=== PATIENT | female | born 1965 ===

== ENCOUNTER 2018-04-10 09:13 | Emergency (ER) | payer OTHER ==
[2018-04-10 09:13] VITALS: BMI 29.2
[2018-04-10 09:25] VITALS: BP 148/83; PULSE 64; RESP 18; TEMP 99; O2SAT 98
[2018-04-10] MEDS ORDERED: Amoxicillin-Clav 875-125 mg Tab PO ONE (10:09)
[2018-04-10] MEDS ORDERED: Tdap Vaccine 0.5 ml Vial (10-64 yrs) IM ONE ×2 (10:11→10:16)
[2018-04-10] MEDS ORDERED: Amoxicillin-Clav 875-125 mg Tab PO STA (10:12)
--- NOTE | 2018-04-10 12:06 | C.PDOC ---
History Of Present Illness 53 y/o female presents to the ER complaining of pain to right distal 3rd finger. Patient states that she picked up some type of object at work 1 week ago and it pinched her. Contrary to triage, patient reports that she was not evaluated for the injury by her PMD. She notes that she was given abx by her pharmacist, she has been taking Bactrim BID for the past 1 week. Denies having drainage, fever, chills, and numbness of hand. Time Seen by Provider: 04/10/18 09:26 Chief Complaint (Nursing): Upper Extremity Problem/Injury History Per: Patient History/Exam Limitations: no limitations Onset/Duration Of Symptoms: Days Current Symptoms Are (Timing): Still Present Severity: Moderate Past Medical History Reviewed: Historical Data, Nursing Documentation, Vital Signs Vital Signs: Last Vital Signs Temp 99 F 04/10/18 09:24 Pulse 64 04/10/18 09:24 Resp 18 04/10/18 09:24 BP 148/83 04/10/18 09:24 Pulse Ox 98 04/10/18 09:24 - Medical History PMH: No Chronic Diseases Surgical History: No Surg Hx Family History: States: No Known Family Hx - Social History Hx Tobacco Use: No Hx Alcohol Use: No Hx Substance Use: No - Immunization History Hx Tetanus Toxoid Vaccination: No Hx Influenza Vaccination: No Hx Pneumococcal Vaccination: No Review Of Systems Except As Marked, All Systems Reviewed And Found Negative. Constitutional: Negative for: Fever, Chills Musculoskeletal: Positive for: Other (pain to right distal 3rd finger) Neurological: Negative for: Weakness, Numbness Physical Exam - Physical Exam Appears: Non-toxic, No Acute Distress Skin: Normal Color, Warm, Dry Head: Atraumatic, Normacephalic Eye(s): bilateral: Normal Inspection Nose: Normal Oral Mucosa: Moist Neck: Supple Chest: Symmetrical Extremity: Normal ROM, No Tenderness, Swelling (mild swelling to dorsal aspect of right distal 3rd finger, no puss, no drainage) Neurological/Psych: Oriented x3, Normal Speech ED Course And Treatment O2 Sat by Pulse Oximetry: 98 (RA) Pulse Ox Interpretation: Normal Medical Decision Making Medical Decision Making: Plan: --Augmentin PO Updates: Patient has been discharged and instructed to follow up with PMD in 3-4 days. Disposition - Disposition Referrals: Jian Feng, [Non-Staff] - Disposition: HOME/ ROUTINE Disposition Time: 10:00 Condition: GOOD Additional Instructions: MITCHELL HUTCHISON, thank you for letting us take care of you today. The emergency medical care you received today was directed at your acute symptoms. If you were prescribed any medication, please fill it and take as directed. It may take several days for your symptoms to resolve. Return to the Emergency Department if your symptoms worsen, do not improve, or if you have any other problems. Please contact your doctor or call one of the physicians/clinics you have been referred to that are listed on the Patient Visit Information form that is included in your discharge packet. Bring any paperwork you were given at discharge with you along with any medications you are taking to your follow up visit. Our treatment cannot replace ongoing medical care by a primary care provider outside of the emergency department. Thank you for allowing the [facility] team to be part of your care today. YOU SHOULD NOT USE PRESCRIPTION MEDICATION THAT IS NOT PRESCRIBED TO YOU. Follow up with your DOCTOR in 3-4 days for re-evaluation and further management. MITCHELL HUTCHISON, sanjay por dejarnos atenderlo rex. La atencin mdica de emergencia que recibi hoy estaba dirigida a tonie sntomas agudos. Si le prescribieron algn medicamento, llnelo y tome segn las indicaciones. Tonie sntomas pueden tardar varios fraire en resolverse. Regrese al Departamento de Emergencia si tonie sntomas empeoran, no mejoran o si tiene algn otro problema. Comunquese con ulrich mdico o llame a jessica de los mdicos / clnicas a los que tolbert sido referido que figura en el formulario de Informacin de visita del paciente que se incluye en ulrich paquete de urban. Traiga todos los documentos que recibi al momento del urban junto con los medicamentos que est tomando en ulrich visita de seguimiento. Nuestro tratamiento no puede reemplazar la atencin mdica en curso por un proveedor de atencin primaria fuera del departamento de emergencia. Sanjay por permitir que el equipo de [facility] sea parte de ulrich cuidado hoy. NO DEBE UTILIZAR MEDICAMENTOS RECETADOS QUE NO ESTN PRESCRITOS. Saran un seguimiento con ulrich DOCTOR en 3-4 fraire para fang reevaluacin y administracin adicional. Prescriptions: Amoxicillin/Clavulanate [Augmentin 875 MG-125 MG] 1 tab PO BID #14 tab Instructions: Cellulitis (Skin Infection), Adult (DC) Forms: Gen Discharge Inst Georgian, [employer] (Georgian) Print Language: GHANAIAN - Clinical Impression Clinical Impression: Cellulitis - Scribe Statement The provider has reviewed the documentation as recorded by the Scribe Azeb Alonso Provider Attestation: All medical record entries made by the Scribe were at my direction and personally dictated by me. I have reviewed the chart and agree that the record accurately reflects my personal performance of the history, physical exam, medical decision making, and the department course for this patient. I have also personally directed, reviewed, and agree with the discharge instructions and disposition.
== END 2018-04-10 10:25 | disposition home or self-care (01) ==
LOC: C.ER 09:13
DX: L03.011 Cellulitis of right finger (principal); Z23 Encounter for immunization

== ENCOUNTER 2018-07-08 17:04 | Observation (INO) | payer OTHER ==
[2018-07-08 17:04] VITALS: BMI 29.2
[2018-07-08 17:26] LABS: BASO % 0.6 % (0.0-2.0); EOS # 0.3 K/uL (0.0-0.7); EOS % 4.4 % (0.0-4.0); HEMOGLOBIN 12.4 g/dL (11.0-16.0); LYMPH # 2.4 K/uL (1.0-4.3); LYMPH % 35.5 % (20.0-40.0); MEAN CELL VOLUME 87.1 fL (81.0-99.0); MEAN CORPUSCULAR HEMOGLOBIN 28.7 pg (27.0-31.0); MEAN CORPUSCULAR HGB CONC 32.9 g/dL (33.0-37.0); MONO # 0.4 K/uL (0.0-0.8); MONO % 6.6 % (0.0-10.0); NEUT # 3.5 K/uL (1.8-7.0); NEUT % 52.9 % (50.0-75.0); RBC 4.34 Mil/uL (3.80-5.20); WHITE BLOOD COUNT 6.7 K/uL (4.8-10.8)
[2018-07-08 17:35] LABS: ALB/GLOB RATIO 1.5 (1.0-2.1); ALBUMIN 4.3 g/dL (3.5-5.0); ALT/SGPT 29 U/L (9-52); AST/SGOT 21 U/L (14-36); BLOOD UREA NITROGEN 16 mg/dL (7-17); CALCIUM 8.7 mg/dl (8.6-10.4); GFR NON-AFRICAN AMERICAN > 60; LIPASE 64 U/L (23-300)
[2018-07-08 17:55] LABS: SQUAMOUS EPITHIAL 3 /hpf (0-5); URINE BACTERIA RARE (<OCC); URINE BILIRUBIN NEGATIVE (NEGATIVE); URINE BLOOD 1+ (NEGATIVE); URINE CLARITY Clear (Clear); URINE COLOR Straw (YELLOW); URINE GLUCOSE (UA) NORMAL (Normal); URINE LEUKOCYTE ESTERASE TRACE Leu/uL (Negative); URINE PROTEIN NEGATIVE (NEGATIVE); URINE UROBILINOGEN NORMAL mg/dL (0.2-1.0)
[2018-07-08] MEDS ORDERED: Sodium Chloride 0.9% 1,000 ML IV ONE (18:12)
[2018-07-08] MEDS ORDERED: Morphine 4 MG/ML VIAL ONE (18:23)
[2018-07-08] MEDS ORDERED: Sodium Chloride 0.9% 1,000 ML ONE (18:23)
--- NOTE | 2018-07-08 18:31 | C.PDOC ---
History Of Present Illness 53 year old female presents to the ED complaining of right sided abdominal pain and headache for several days but worse today. Reports she has a history of gallbladder stones. Denies any vomiting, diarrhea, nausea, fever, chills, leydi rtness of breath, chest pain, dysuria, hematuria, or any other symptoms. Time Seen by Provider: 07/08/18 18:03 Chief Complaint (Nursing): Female Genitourinary History Per: Patient History/Exam Limitations: no limitations Onset/Duration Of Symptoms: Days, Worse Since (today) Current Symptoms Are (Timing): Still Present Location Of Pain/Discomfort: RUQ, RLQ Radiation Of Pain To:: None Associated Symptoms: denies: Fever, Chills, Nausea, Vomiting, Diarrhea, Back Pain, Chest Pain, Urinary Symptoms Past Medical History Reviewed: Historical Data, Nursing Documentation, Vital Signs Vital Signs: Last Vital Signs Temp 98.2 F 07/08/18 17:52 Pulse 74 07/08/18 17:52 Resp 20 07/08/18 17:52 BP 126/66 07/08/18 17:52 Pulse Ox 98 07/08/18 17:52 - Medical History PMH: Diabetes Surgical History: No Surg Hx Family History: States: No Known Family Hx - Social History Hx Tobacco Use: No Hx Alcohol Use: No Hx Substance Use: No - Immunization History Hx Tetanus Toxoid Vaccination: No Hx Influenza Vaccination: No Hx Pneumococcal Vaccination: No Review Of Systems Except As Marked, All Systems Reviewed And Found Negative. Constitutional: Negative for: Fever, Chills Eyes: Negative for: Vision Change Cardiovascular: Negative for: Chest Pain Respiratory: Negative for: Shortness of Breath Gastrointestinal: Positive for: Abdominal Pain. Negative for: Nausea, Vomiting, Diarrhea, Constipation Genitourinary: Negative for: Dysuria, Hematuria Neurological: Positive for: Headache Physical Exam - Physical Exam Additional Physical Exam Comments: General- Non-toxic, Moderate distress Head- Normocephalic, Atraumatic Eyes- PERRL, EOMI, (Conjunctiva clear) Mucosa- Moist Chest- Symmetrical Cardiovascular: Rhythm Regular, No murmur, Other (Normal S1, S2) Resp- no wheezing, rales, or rhonchi, Lungs CTA bilaterally Abd- Soft. RUQ and RLQ tenderness. No distension. No guarding, no rebound Ext: Bilateral (atraumatic, normal color and temperature, no cyanosis or edema) DP pulses 2+ Neuro- Oriented x3. Gait: steady ED Course And Treatment - Laboratory Results Result Diagrams: 07/08/18 17:20 07/08/18 17:20 O2 Sat by Pulse Oximetry: 98 (RA) Pulse Ox Interpretation: Normal - CT Scan/US CT abdomen Other Rad Studies (CT/US): Read By Radiologist, Radiology Report Reviewed CT/US Interpretation: IMPRESSION: Gallstones. Mildly distended fluid-filled loops of small bowel extending into the pelvis with the mild partial small bowel obstruction not excluded. Clinical correlation and follow-up study recommended. Medical Decision Making Medical Decision Making: Plan - CT abd/pel - Morphine 4mg IVP - Zofran 4mg IVP - IV fluids - Urine culture [address] Jackson. Accepts patient for observation for possible bladder obstruction and abdominal pain. Disposition - Disposition Forms: [facility] (Chilean) - Scribe Statement The provider has reviewed the documentation as recorded by the Scribsavi Taylor All medical record entries made by the Baoibsavi were at my direction and personally dictated by me. I have reviewed the chart and agree that the record a ccurately reflects my personal performance of the history, physical exam, medical decision making, and the department course for this patient. I have also personally directed, reviewed, and agree with the discharge instructions and disposition.
[2018-07-08] MEDS ORDERED: Iodixanol 320 MG/ML 100 ML BOTTLE IV ONE (18:35)
[2018-07-08] MEDS ORDERED: Sodium Chloride 0.9% 1,000 ML IV SCH (19:45)
--- NOTE | 2018-07-08 21:28 | CP.PCM.HP ---
<Reji Werner - Last Filed: 07/09/18 06:53> History of Present Illness - History of Present Illness History of Present Illness: CC "abdominal pain" HPI: Patient is a 53 year old female who presents with complaints of worsening right sided abdominal pain that became severe today at 4pm. She states she was at work today, bent over to lift a heavy bag of clothes, and felt severe pain in her right abdomen when she stood up. She states that her abdominal pain is worse when she bends over, moves and takes a deep breath and radiates to her right thigh. She denies any alleviating factors, however states that she feels better after she received pain medication in the ED. She did not take anything at home for her symptoms. She states she has had right sided abdominal pain for the past 4 months, initially intermittent, mild in nature, only lasting about 15 minutes but has since gradually worsened. She has seen her PMD for her abdominal pain and she had a recent abdominal ultrasound which revealed gallstones. Of note, she also states she has had thin stools about the size of a pencil every 2 to 3 days for the past 4 months. Her last bowel movement was today, pencil thin, brown, nonbloody nonblack stools. Admits to feeling slightly dizzy with the pain. She denies any nausea, vomiting. She denies fevers, chills, chest pain, shortness of breath, palpitations, urinary complaints including dysuria, urinary frequency. Admits to slight sour taste in her mouth. PMD: clinic PMH: GERD PSH: none Family hx: Sister of unspecified cancer at age 48 Social hx: denies history of tobacco, alcohol or drug use. Currently works in a [employer]. Home meds: omega 3, Pepcid Allergies: NKDA HCP: Bryson No advance directive in place Present on Admission - Present on Admission Any Indicators Present on Admission: No Review of Systems - Constitutional Constitutional: absent: Chills, Fever, Weight Gain, Weight Loss - EENT Eyes: absent: Change in Vision Ears: absent: Ear Pain Nose/Mouth/Throat: absent: Nasal Congestion, Sore Throat - Cardiovascular Cardiovascular: absent: Chest Pain, Dyspnea, Palpitations, Syncope - Respiratory Respiratory: absent: Cough, Dyspnea - Gastrointestinal Gastrointestinal: Abdominal Pain. absent: Diarrhea, Nausea, Vomiting - Genitourinary Genitourinary: absent: Difficulty Urinating, Dysuria - Musculoskeletal Musculoskeletal: absent: Neck Pain, Stiffness, Tingling - Neurological Neurological: absent: Abnormal Gait, Abnormal Hearing, Abnormal Movements, Confusion, Dizziness, Syncope - Psychiatric Psychiatric: absent: Anxiety, Depression Past Patient History - Past Social History Smoking Status: Never Smoked - ENDOCRINE/METABOLIC Hx Diabetes Mellitus Type 2: Yes - PSYCHIATRIC Hx Substance Use: No - SURGICAL HISTORY Hx Surgeries: No - ANESTHESIA Hx Anesthesia: No Hx Anesthesia Reactions: No Hx Malignant Hyperthermia: No Meds Allergies/Adverse Reactions: Allergies Allergy/AdvReac Type Severity Reaction Status Date / Time No Known Allergies Allergy Verified 04/10/18 09:18 Physical Exam - Constitutional Appears: Well, No Acute Distress - Head Exam Head Exam: ATRAUMATIC, NORMOCEPHALIC - Eye Exam Eye Exam: EOMI, PERRL. absent: Conjunctival injection, Periorbital swelling - ENT Exam ENT Exam: Mucous Membranes Moist, Normal Oropharynx - Neck Exam Neck exam: Positive for: Full Rom. Negative for: Lymphadenopathy, Tenderness, Thyromegaly - Respiratory Exam Respiratory Exam: Clear to Auscultation Bilateral, NORMAL BREATHING PATTERN. absent: Rales, Rhonchi, Wheezes, Respiratory Distress, Stridor - Cardiovascular Exam Cardiovascular Exam: REGULAR RHYTHM, +S1, +S2. absent: Gallop, Rubs, Systolic Murmur - GI/Abdominal Exam GI & Abdominal Exam: Normal Bowel Sounds, Soft, Tenderness (Mild right mid abdominal, reproducible with pressure to right thoracic at level T10 ). absent: Distended, Firm, Guarding, Rebound, Rigid - Rectal Exam Rectal Exam: NORMAL INSPECTION. absent: Black Stool, Bloody Stool, Hemorrhoids - Extremities Exam Extremities exam: Positive for: normal capillary refill, pedal pulses present. Negative for: calf tenderness - Back Exam Back exam: absent: CVA tenderness (L), CVA tenderness (R) - Neurological Exam Neurological exam: Alert, CN II-XII Intact, Oriented x3 - Psychiatric Exam Psychiatric exam: Normal Affect, Normal Mood - Skin Skin Exam: Dry, Intact, Warm Results - Vital Signs Recent Vital Signs: Last Vital Signs Temp 98.7 F 07/08/18 20:15 Pulse 59 L 07/08/18 20:15 Resp 18 07/08/18 20:15 BP 138/59 L 07/08/18 20:15 Pulse Ox 97 07/08/18 20:15 - Labs Result Diagrams: 07/08/18 17:20 07/08/18 17:20 Labs: Laboratory Results - last 24 hr 07/08/18 07/08/18 07/08/18 17:20 17:20 17:46 WBC 6.7 RBC 4.34 Hgb 12.4 Hct 37.8 MCV 87.1 MCH 28.7 MCHC 32.9 L RDW 14.0 Plt Count 250 MPV 8.0 Neut % (Auto) 52.9 Lymph % (Auto) 35.5 [place] % (Auto) 6.6 Eos % (Auto) 4.4 H Baso % (Auto) 0.6 Neut # (Auto) 3.5 Lymph # (Auto) 2.4 [place] # (Auto) 0.4 Eos # (Auto) 0.3 Baso # (Auto) 0.0 Sodium 141 Potassium 4.3 Chloride 103 Carbon Dioxide 30 Anion Gap 12 BUN 16 Creatinine 0.7 Est GFR ( Amer) > 60 Est GFR (Non-Af Amer) > 60 Random Glucose 96 Calcium 8.7 Total Bilirubin 0.4 AST 21 ALT 29 Alkaline Phosphatase 127 H Total Protein 7.1 Albumin 4.3 Globulin 2.8 Albumin/Globulin Ratio 1.5 Lipase 64 Urine Color Straw Urine Clarity Clear Urine pH 6.0 Ur Specific [place] 1.010 Urine Protein Negative Urine Glucose (UA) Normal Urine Ketones Negative Urine Blood 1+ H Urine Nitrate Negative Urine Bilirubin Negative Urine Urobilinogen Normal Ur Leukocyte Esterase Trace Urine WBC (Auto) 2 Urine RBC (Auto) 1 Ur Squamous Epith Cells 3 Urine Bacteria Rare Urine HCG, Qual 07/08/18 18:08 WBC RBC Hgb Hct MCV MCH MCHC RDW Plt Count MPV Neut % (Auto) Lymph % (Auto) [place] % (Auto) Eos % (Auto) Baso % (Auto) Neut # (Auto) Lymph # (Auto) [place] # (Auto) Eos # (Auto) Baso # (Auto) Sodium Potassium Chloride Carbon Dioxide Anion Gap BUN Creatinine Est GFR ( Amer) Est GFR (Non-Af Amer) Random Glucose Calcium Total Bilirubin AST ALT Alkaline Phosphatase Total Protein Albumin Globulin Albumin/Globulin Ratio Lipase Urine Color Urine Clarity Urine pH Ur Specific [place] Urine Protein Urine Glucose (UA) Urine Ketones Urine Blood Urine Nitrate Urine Bilirubin Urine Urobilinogen Ur Leukocyte Esterase Urine WBC (Auto) Urine RBC (Auto) Ur Squamous Epith Cells Urine Bacteria Urine HCG, Qual Negative Assessment & Plan - Assessment and Plan (Free Text) Assessment: 53 year old female who presents for sudden onset of right abdominal pain 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 Plan: Abdominal pain, likely secondary to radiculopathy of thoracic spine CT Abdomen/pelvis: Gallstone, Mildly distended fluid filled loops of small bowel extending into the pelvis with mild partial SBO not excluded. In ED, patient received NS IV fluids, Morphine and Zofran with improvement of symptoms Afebrile white count 6.7 Able to tolerate PO Passing gas and stool, last stool in afternoon. May give Ibuprofen 600mg for pain. May resume diet, monitor if patient experience nausea/vomiting/no passing gas/stools Thin stools Will require outpatient colonoscopy f/u stool occult PPX: Heparin Pepcid Heart healthy diet Case discussed with Dr. Manuel Werner, PGY1 <Florentino Jackson P - Last Filed: 07/09/18 07:35> Results - Vital Signs Recent Vital Signs: Last Vital Signs Temp 98.4 F 07/09/18 00:18 Pulse 59 L 07/09/18 00:18 Resp 20 07/09/18 00:18 BP 131/78 07/09/18 00:18 Pulse Ox 97 07/09/18 00:18 - Labs Result Diagrams: 07/09/18 06:41 07/08/18 17:20 Labs: Laboratory Results - last 24 hr 07/08/18 07/08/18 07/08/18 17:20 17:20 17:46 WBC 6.7 RBC 4.34 Hgb 12.4 Hct 37.8 MCV 87.1 MCH 28.7 MCHC 32.9 L RDW 14.0 Plt Count 250 MPV 8.0 Neut % (Auto) 52.9 Lymph % (Auto) 35.5 [place] % (Auto) 6.6 Eos % (Auto) 4.4 H Baso % (Auto) 0.6 Neut # (Auto) 3.5 Lymph # (Auto) 2.4 [place] # (Auto) 0.4 Eos # (Auto) 0.3 Baso # (Auto) 0.0 Sodium 141 Potassium 4.3 Chloride 103 Carbon Dioxide 30 Anion Gap 12 BUN 16 Creatinine 0.7 Est GFR ( Amer) > 60 Est GFR (Non-Af Amer) > 60 Random Glucose 96 Calcium 8.7 Total Bilirubin 0.4 AST 21 ALT 29 Alkaline Phosphatase 127 H Total Protein 7.1 Albumin 4.3 Globulin 2.8 Albumin/Globulin Ratio 1.5 Lipase 64 Urine Color Straw Urine Clarity Clear Urine pH 6.0 Ur Specific [place] 1.010 Urine Protein Negative Urine Glucose (UA) Normal Urine Ketones Negative Urine Blood 1+ H Urine Nitrate Negative Urine Bilirubin Negative Urine Urobilinogen Normal Ur Leukocyte Esterase Trace Urine WBC (Auto) 2 Urine RBC (Auto) 1 Ur Squamous Epith Cells 3 Urine Bacteria Rare Urine HCG, Qual 07/08/18 07/09/18 18:08 06:41 WBC 5.8 RBC 4.26 Hgb 12.3 Hct 37.1 MCV 87.0 MCH 28.9 MCHC 33.2 RDW 13.8 Plt Count 273 MPV 8.6 Neut % (Auto) 52.4 Lymph % (Auto) 35.5 [place] % (Auto) 6.8 Eos % (Auto) 4.8 H Baso % (Auto) 0.5 Neut # (Auto) 3.0 Lymph # (Auto) 2.1 [place] # (Auto) 0.4 Eos # (Auto) 0.3 Baso # (Auto) 0.0 Sodium Potassium Chloride Carbon Dioxide Anion Gap BUN Creatinine Est GFR ( Amer) Est GFR (Non-Af Amer) Random Glucose Calcium Total Bilirubin AST ALT Alkaline Phosphatase Total Protein Albumin Globulin Albumin/Globulin Ratio Lipase Urine Color Urine Clarity Urine pH Ur Specific [place] Urine Protein Urine Glucose (UA) Urine Ketones Urine Blood Urine Nitrate Urine Bilirubin Urine Urobilinogen Ur Leukocyte Esterase Urine WBC (Auto) Urine RBC (Auto) Ur Squamous Epith Cells Urine Bacteria Urine HCG, Qual Negative Attending/Attestation - Attestation I have personally seen and examined this patient.: Yes I have fully participated in the care of the patient.: Yes I have reviewed all pertinent clinical information: Yes Notes (Text): 07/09/18 07:29 Assessment Clinically right lower thraco-lumbar radiculopathy, with h/o of lifting heavy box and start of symptoms, pain in relation to movement of spine, cough, and slr + on right side [address] finding of fluid filled small bowel is likely incidental, with patient c/o intermittent abd pain, related to this rather gall stones, change in caliber of the stool may also benefit with out patient colonoscopy. Plan Symptom control counselled about spine radiculopathy DC home this morning Out patient gi evaluation. See orders for detail.
[2018-07-09 00:21] VITALS: RESP 20
[2018-07-09 07:19] LABS: BASO % 0.5 % (0.0-2.0); EOS # 0.3 K/uL (0.0-0.7); EOS % 4.8 % (0.0-4.0); HEMOGLOBIN 12.3 g/dL (11.0-16.0); LYMPH # 2.1 K/uL (1.0-4.3); LYMPH % 35.5 % (20.0-40.0); MEAN CORPUSCULAR HEMOGLOBIN 28.9 pg (27.0-31.0); MEAN CORPUSCULAR HGB CONC 33.2 g/dL (33.0-37.0); MEAN PLATELET VOLUME 8.6 fL (7.2-11.7); MONO # 0.4 K/uL (0.0-0.8); MONO % 6.8 % (0.0-10.0); NEUT % 52.4 % (50.0-75.0); NRBC % 0.2 % (0.0-2.0); RBC 4.26 Mil/uL (3.80-5.20); RED CELL DISTRIBUTION WIDTH 13.8 % (11.5-14.5); WHITE BLOOD COUNT 5.8 K/uL (4.8-10.8)
[2018-07-09 08:02] VITALS: BP 149/81; PULSE 60; TEMP 97.9; O2SAT 96
[2018-07-09 08:09] LABS: ALB/GLOB RATIO 1.4 (1.0-2.1); ALBUMIN 3.9 g/dL (3.5-5.0); ALT/SGPT 28 U/L (9-52); AST/SGOT 20 U/L (14-36); BLOOD UREA NITROGEN 14 mg/dL (7-17); CALCIUM 8.5 mg/dl (8.6-10.4); GFR NON-AFRICAN AMERICAN > 60
--- NOTE | 2018-07-09 10:14 | CT ---
Date of service: 07/08/2018 PROCEDURE: CT Abdomen and Pelvis with and without intravenous contrast HISTORY: ABD PAIN COMPARISON: None. TECHNIQUE: Axial images of the abdomen were obtained in the pre contrast, portal venous and delayed phases of enhancement. Coronal and sagittal reformats were generated. Contrast dose: Radiation dose: Total exam DLP = 964.09 mGy-cm. This CT exam was performed using one or more of the following dose reduction techniques: Automated exposure control, adjustment of the mA and/or kV according to patient size, and/or use of iterative reconstruction technique. FINDINGS: LOWER THORAX: Unremarkable. LIVER: Unremarkable. No gross lesion or ductal dilatation. GALLBLADDER AND BILE DUCTS: Cholelithiasis. PANCREAS: Unremarkable. No gross lesion or ductal dilatation. SPLEEN: Unremarkable. ADRENALS: Unremarkable. No mass. KIDNEYS AND URETERS: Unremarkable. No hydronephrosis. No solid mass. VASCULATURE: Unremarkable. No aortic aneurysm. No aortic atherosclerotic calcification or mural plaque present. BOWEL: Scattered distended loops of small bowel possibly representing ileus/partial small bowel obstruction. APPENDIX: Normal appendix. PERITONEUM: Unremarkable. No free fluid. No free air. LYMPH NODES: Unremarkable. No enlarged lymph nodes. BLADDER: Unremarkable. REPRODUCTIVE: Unremarkable. BONES: No acute fracture. OTHER FINDINGS: None. IMPRESSION: Cholelithiasis. Scattered distended loops of small bowel possibly representing ileus/partial small bowel obstruction.
[2018-07-09] MEDS ORDERED: Pneumococcal 23-Valent Vaccine IM ONE (11:45)
[2018-07-09] MEDS ORDERED: Influenza Vaccine 60 MCG/0.5 ML SYR (3 yr & up) IM ONE (11:45)
--- NOTE | 2018-07-09 14:26 | CP.PCM.DIS ---
<ChagoCorinnadasiasavi - Last Filed: 07/09/18 14:21> Provider - Provider Date of Admission: 07/08/18 19:42 Attending physician: Florentino Jackson MD Time Spent in preparation of Discharge (in minutes): 70 Hospital Course - Lab Results Lab Results: Most Recent Lab Values WBC 5.8 K/uL (4.8-10.8) 07/09/18 06:41 RBC 4.26 Mil/uL (3.80-5.20) 07/09/18 06:41 Hgb 12.3 g/dL (11.0-16.0) 07/09/18 06:41 Hct 37.1 % (34.0-47.0) 07/09/18 06:41 MCV 87.0 fL (81.0-99.0) 07/09/18 06:41 MCH 28.9 pg (27.0-31.0) 07/09/18 06:41 MCHC 33.2 g/dL (33.0-37.0) 07/09/18 06:41 RDW 13.8 % (11.5-14.5) 07/09/18 06:41 Plt Count 273 K/uL (130-400) 07/09/18 06:41 MPV 8.6 fL (7.2-11.7) 07/09/18 06:41 Neut % (Auto) 52.4 % (50.0-75.0) 07/09/18 06:41 Lymph % (Auto) 35.5 % (20.0-40.0) 07/09/18 06:41 [place] % (Auto) 6.8 % (0.0-10.0) 07/09/18 06:41 Eos % (Auto) 4.8 % (0.0-4.0) H 07/09/18 06:41 Baso % (Auto) 0.5 % (0.0-2.0) 07/09/18 06:41 Neut # (Auto) 3.0 K/uL (1.8-7.0) 07/09/18 06:41 Lymph # (Auto) 2.1 K/uL (1.0-4.3) 07/09/18 06:41 [place] # (Auto) 0.4 K/uL (0.0-0.8) 07/09/18 06:41 Eos # (Auto) 0.3 K/uL (0.0-0.7) 07/09/18 06:41 Baso # (Auto) 0.0 K/uL (0.0-0.2) 07/09/18 06:41 Sodium 139 mmol/L (132-148) 07/09/18 06:41 Potassium 3.7 mmol/L (3.6-5.2) 07/09/18 06:41 Chloride 103 mmol/L (98-107) 07/09/18 06:41 Carbon Dioxide 28 mmol/L (22-30) 07/09/18 06:41 Anion Gap 12 (10-20) 07/09/18 06:41 BUN 14 mg/dL (7-17) 07/09/18 06:41 Creatinine 0.6 mg/dL (0.7-1.2) L 12 06:41 Est GFR ( Amer) > 60 07/09/18 06:41 Est GFR (Non-Af Amer) > 60 07/09/18 06:41 POC Glucose (mg/dL) 99 mg/dL (65-110) 07/08/18 21:19 Random Glucose 103 mg/dL (65-105) 07/09/18 06:41 Calcium 8.5 mg/dl (8.6-10.4) L 07/09/18 06:41 Phosphorus 4.9 mg/dL (2.5-4.5) H 07/09/18 06:41 Magnesium 2.1 mg/dL (1.6-2.3) 07/09/18 06:41 Total Bilirubin 0.7 mg/dL (0.2-1.3) 07/09/18 06:41 AST 20 U/L (14-36) 07/09/18 06:41 ALT 28 U/L (9-52) 07/09/18 06:41 Alkaline Phosphatase 95 U/L (38-126) 07/09/18 06:41 Total Protein 6.6 g/dL (6.3-8.3) 07/09/18 06:41 Albumin 3.9 g/dL (3.5-5.0) 07/09/18 06:41 Globulin 2.7 gm/dL (2.2-3.9) 07/09/18 06:41 Albumin/Globulin Ratio 1.4 (1.0-2.1) 07/09/18 06:41 Lipase 64 U/L (23-300) 07/08/18 17:20 Urine Color Straw (YELLOW) 07/08/18 17:46 Urine Clarity Clear (Clear) 07/08/18 17:46 Urine pH 6.0 (5.0-8.0) 07/08/18 17:46 Ur Specific [place] 1.010 (1.003-1.030) 07/08/18 17:46 Urine Protein Negative mg/dL (NEGATIVE) 07/08/18 17:46 Urine Glucose (UA) Normal mg/dL (Normal) 07/08/18 17:46 Urine Ketones Negative mg/dL (NEGATIVE) 07/08/18 17:46 Urine Blood 1+ (NEGATIVE) H 07/08/18 17:46 Urine Nitrate Negative (NEGATIVE) 07/08/18 17:46 Urine Bilirubin Negative (NEGATIVE) 07/08/18 17:46 Urine Urobilinogen Normal mg/dL (0.2-1.0) 07/08/18 17:46 Ur Leukocyte Esterase Trace [place]/uL (Negative) 07/08/18 17:46 Urine WBC (Auto) 2 /hpf (0-5) 07/08/18 17:46 Urine RBC (Auto) 1 /hpf (0-3) 07/08/18 17:46 Ur Squamous Epith Cells 3 /hpf (0-5) 07/08/18 17:46 Urine Bacteria Rare (<OCC) 07/08/18 17:46 Urine HCG, Qual Negative (NEGATIVE) 07/08/18 18:08 Stool Occult Blood Negative (NEGATIVE) 07/08/18 21:01 - Hospital Course Hospital Course: Upon Admission Patient is a 53 year old female who presents with complaints of worsening right sided abdominal pain that became severe today at 4pm. She states she was at work today, bent over to lift a heavy bag of clothes, and felt severe pain in her right abdomen when she stood up. She states that her abdominal pain is worse when she bends over, moves and takes a deep breath and radiates to her right thigh. She denies any alleviating factors, however states that she feels better after she received pain medication in the ED. She did not take anything at home for her symptoms. She states she has had right sided abdominal pain for the past 4 months, initially intermittent, mild in nature, only lasting about 15 minutes but has since gradually worsened. She has seen her PMD for her abdominal pain and she had a recent abdominal ultrasound which revealed gallstones. Of note, she also states she has had thin stools about the size of a pencil every 2 to 3 days for the past 4 months. Her last bowel movement was today, pencil thin, brown, nonbloody nonblack stools. Admits to feeling slightly dizzy with the pain. She denies any nausea, vomiting. She denies fevers, chills, chest pain, shortness of breath, palpitations, urinary complaints including dysuria, urinary frequency. Admits to slight sour taste in her mouth. CT abdomen/pelvis showed gallstones and mildly distended fluid-filled loops of small bowel Pt was admitted for abdominal pain. Hospital Course Pt was given zofran for nausea, protonix for abdominal colic, and morphine for abdominal pain. The following morning, pt was able to tolerate diet. She reported resolution of her abdominal pain. Pt was deemed stable for discharge to home. Upon Discharge Pt was deemed stable for discharge. She was educated on lifting objects properly, and the nature of her gallstones. She was instructed to follow up at the health clinic and to see a specialist for her gallstones, for which she said she already had an appointment. Pt was discharged with naproxen for muscle strain. Pt understood instructions and agreed. Discharge Exam - Head Exam Head Exam: ATRAUMATIC, NORMOCEPHALIC - Eye Exam Eye Exam: EOMI, Normal appearance, PERRL - ENT Exam ENT Exam: Mucous Membranes Moist - Respiratory Exam Respiratory Exam: Clear to PA & Lateral, NORMAL BREATHING PATTERN, UNREMARKABLE. absent: Rales, Rhonchi, Wheezes - Cardiovascular Exam Cardiovascular Exam: REGULAR RHYTHM, +S1, +S2. absent: Gallop, Rubs, Systolic Murmur - GI/Abdominal Exam GI & Abdominal Exam: Normal Bowel Sounds, Soft. absent: Distended, Firm, Tenderness - Extremities Exam Extremities exam: normal inspection - Neurological Exam Neurological exam: Alert, Oriented x3 - Psychiatric Exam Psychiatric exam: Normal Affect, Normal Mood - Skin Skin Exam: Normal Color Discharge Plan - Discharge Medications Prescriptions: RX: Naproxen 500 mg PO Q12H PRN #30 tab PRN Reason: Pain, Moderate (4-7) - Follow Up Plan Condition: GOOD Disposition: HOME/ ROUTINE Instructions: Small Bowel Obstruction (DC), Naproxen Additional Instructions: Please follow up with your primary care doctor at the [facility] within 1 week. Please take the naproxen if you have pain, 1 tablet every 12 hours. Please take with food. Return to the ED if symptoms return. Take care and be well. Por favor princess un seguimiento con ulrich mdico de atencin primaria en la [facility] [place] [facility] [place] dentro de 1 semana. [place] el naproxeno si tiene dolor, 1 tableta cada 12 horas. Por favor tome con la comida. Regrese a la ED si los sntomas regresan. Cudate y sintete kerry. Referrals: Mandy Neely MD [Staff Provider] - <Wilmer Car - Last Filed: 07/09/18 15:12> Provider - Provider Date of Admission: 07/08/18 19:42 Attending physician: Florentino Jackson MD Hospital Course - Lab Results Lab Results: Most Recent Lab Values WBC 5.8 K/uL (4.8-10.8) 07/09/18 06:41 RBC 4.26 Mil/uL (3.80-5.20) 07/09/18 06:41 Hgb 12.3 g/dL (11.0-16.0) 07/09/18 06:41 Hct 37.1 % (34.0-47.0) 07/09/18 06:41 MCV 87.0 fL (81.0-99.0) 07/09/18 06:41 MCH 28.9 pg (27.0-31.0) 07/09/18 06:41 MCHC 33.2 g/dL (33.0-37.0) 07/09/18 06:41 RDW 13.8 % (11.5-14.5) 07/09/18 06:41 Plt Count 273 K/uL (130-400) 07/09/18 06:41 MPV 8.6 fL (7.2-11.7) 07/09/18 06:41 Neut % (Auto) 52.4 % (50.0-75.0) 07/09/18 06:41 Lymph % (Auto) 35.5 % (20.0-40.0) 07/09/18 06:41 [place] % (Auto) 6.8 % (0.0-10.0) 07/09/18 06:41 Eos % (Auto) 4.8 % (0.0-4.0) H 07/09/18 06:41 Baso % (Auto) 0.5 % (0.0-2.0) 07/09/18 06:41 Neut # (Auto) 3.0 K/uL (1.8-7.0) 07/09/18 06:41 Lymph # (Auto) 2.1 K/uL (1.0-4.3) 07/09/18 06:41 [place] # (Auto) 0.4 K/uL (0.0-0.8) 07/09/18 06:41 Eos # (Auto) 0.3 K/uL (0.0-0.7) 07/09/18 06:41 Baso # (Auto) 0.0 K/uL (0.0-0.2) 07/09/18 06:41 Sodium 139 mmol/L (132-148) 07/09/18 06:41 Potassium 3.7 mmol/L (3.6-5.2) 07/09/18 06:41 Chloride 103 mmol/L (98-107) 07/09/18 06:41 Carbon Dioxide 28 mmol/L (22-30) 07/09/18 06:41 Anion Gap 12 (10-20) 07/09/18 06:41 BUN 14 mg/dL (7-17) 07/09/18 06:41 Creatinine 0.6 mg/dL (0.7-1.2) L 07/09/18 06:41 Est GFR ( Amer) > 60 07/09/18 06:41 Est GFR (Non-Af Amer) > 60 07/09/18 06:41 POC Glucose (mg/dL) 99 mg/dL (65-110) 07/08/18 21:19 Random Glucose 103 mg/dL (65-105) 07/09/18 06:41 Calcium 8.5 mg/dl (8.6-10.4) L 12/26/18 06:41 Phosphorus 4.9 mg/dL (2.5-4.5) H 07/09/18 06:41 Magnesium 2.1 mg/dL (1.6-2.3) 07/09/18 06:41 Total Bilirubin 0.7 mg/dL (0.2-1.3) 07/09/18 06:41 AST 20 U/L (14-36) 07/09/18 06:41 ALT 28 U/L (9-52) 07/09/18 06:41 Alkaline Phosphatase 95 U/L (38-126) 07/09/18 06:41 Total Protein 6.6 g/dL (6.3-8.3) 07/09/18 06:41 Albumin 3.9 g/dL (3.5-5.0) 07/09/18 06:41 Globulin 2.7 gm/dL (2.2-3.9) 07/09/18 06:41 Albumin/Globulin Ratio 1.4 (1.0-2.1) 07/09/18 06:41 Lipase 64 U/L (23-300) 07/08/18 17:20 Urine Color Straw (YELLOW) 07/08/18 17:46 Urine Clarity Clear (Clear) 07/08/18 17:46 Urine pH 6.0 (5.0-8.0) 07/08/18 17:46 Ur Specific [place] 1.010 (1.003-1.030) 07/08/18 17:46 Urine Protein Negative mg/dL (NEGATIVE) 07/08/18 17:46 Urine Glucose (UA) Normal mg/dL (Normal) 07/08/18 17:46 Urine Ketones Negative mg/dL (NEGATIVE) 07/08/18 17:46 Urine Blood 1+ (NEGATIVE) H 07/08/18 17:46 Urine Nitrate Negative (NEGATIVE) 07/08/18 17:46 Urine Bilirubin Negative (NEGATIVE) 07/08/18 17:46 Urine Urobilinogen Normal mg/dL (0.2-1.0) 07/08/18 17:46 Ur Leukocyte Esterase Trace [place]/uL (Negative) 07/08/18 17:46 Urine WBC (Auto) 2 /hpf (0-5) 07/08/18 17:46 Urine RBC (Auto) 1 /hpf (0-3) 07/08/18 17:46 Ur Squamous Epith Cells 3 /hpf (0-5) 07/08/18 17:46 Urine Bacteria Rare (<OCC) 07/08/18 17:46 Urine HCG, Qual Negative (NEGATIVE) 07/08/18 18:08 Stool Occult Blood Negative (NEGATIVE) 07/08/18 21:01 Attending/Attestation - Attestation I have personally seen and examined this patient.: Yes I have fully participated in the care of the patient.: Yes I have reviewed all pertinent clinical information, including history, physical exam and plan: Yes Notes (Text): 07/09/18 15:12 Medical attending: Patient was seen and examined by me, agrees the above note by the medical service technician. There was a CAT scan of the abdomen and pelvis done reporting a there was a gallstones however, the patient's AST, ALT, T bili and lipase levels were normal. Per review of the patient's history and physical, the patient was lifting very heavy objects and after that noticed that she was having a lot of abdominal pain. Today we saw her she was walking on her own, she was able to tolerate diet, she looked very well and stated that she felt much better. It's very likely that when she was musculoskeletal strain due to the heavy lifting that she was recently we have advised her to take a medication such as naproxen or equivalent NSAID [id number] with food. thank you Wilmer Car
== END 2018-07-09 13:10 | disposition home or self-care (01) ==
LOC: C.ER 17:04 → C.3T 19:42
PROVIDERS: ADMIT Internal Medicine; ATTEND Internal Medicine
DX: R10.9 Unspecified abdominal pain (principal); K80.20 Calculus of gallbladder without cholecystitis without obstruction; X50.0XXA Overexertion from strenuous movement or load, initial encounter
CPT/HCPCS: 36415; 74177; 80053; 81001; 82948; 83690; 83735; 84100; 84703; 85025; 87086; 90471; 90674; 90732; 96361; 96374; 96375; 99285; G0328; G0378; J1644; J2270; J2405; J7030; Q9967

== ENCOUNTER 2018-08-13 09:12 | Outpatient (CLI) | payer OTHER | END 2018-08-13 09:13 | disposition home or self-care (01) | LOC: C.MAMMO 09:12 | DX: Z12.31 Encounter for screening mammogram for malignant neoplasm of breast (principal) ==

== ENCOUNTER 2018-11-18 07:34 | Day surgery (SDC) | payer OTHER ==
[2018-11-18 08:17] VITALS: BMI 28.2
[2018-11-18] MEDS ORDERED: Propofol 10 mg/ml Inj (20 ML) ONE (08:32)
[2018-11-18] MEDS ORDERED: Midazolam 2 MG/2 ML VIAL ONE (08:32)
[2018-11-18] MEDS ORDERED: Neostigmine 1:1000 (1 mg/ml) Inj ONE (08:35)
[2018-11-18] MEDS ORDERED: Rocuronium 10 mg/ml (10 ml) ONE (08:35)
[2018-11-18] MEDS ORDERED: Succinylcholine Chloride 20 mg/ml Syr (5 ml) IV ONE (08:35)
[2018-11-18] MEDS ORDERED: Lidocaine Hydrochloride 5 ML INJ ONE (08:35)
[2018-11-18] MEDS ORDERED: ceFAZolin 1 gm in NS 2 GM/200 ML BAG IVPB ONE (09:14)
[2018-11-18] MEDS ORDERED: ePHEDrine 50 mg/ml Inj ONE (09:48)
[2018-11-18] MEDS ORDERED: Oxycodone/Acetaminophen 5/325 mg Tab PO PRN (10:45)
[2018-11-18] MEDS ORDERED: HYDROmorphone 0.5 mg/0.5 ml ISec IVP PRN (10:53)
--- NOTE | 2018-11-18 10:54 | PCM.SURG1 ---
Surgeon's Initial Post Op Note - Surgeon's Notes Surgeon: Dr. Ashraf User Experience Designer: Harish PGY2 Type of Anesthesia: General Endo Anesthesia Administered By: Dr. Torres Pre-Operative Diagnosis: Cholelithiasis, biliary colic Operative Findings: Cholelithiasis, anterior and posterior cystic arteries with branches Post-Operative Diagnosis: Cholelithiasis, biliary colic Operation Performed: Laparoscopic Cholecystectomy Specimen/Specimens Removed: Gallbladder Estimated Blood Loss: EBL {In ML}: 10 Blood Products Given: N/A Drains Used: No Drains Post-Op Condition: Good Date of Surgery/Procedure: 11/18/18 Time of Surgery/Procedure: 10:54
--- NOTE | 2018-11-18 10:54 | PCM.OP ---
Operative Report - Operative Report Date of Surgery/Procedure: 11/18/18 Time of Surgery/Procedure: 10:52 Surgeon: Dr. Ashraf Vehicle Upholsterer: Harish [id number] Anesthesia/Sedation: General ENDO Dr. Torres Pre-Operative Diagnosis: cholelithiasis, biliary colic Post-Operative Diagnosis: cholelithiasis, biliary colic Indication for Surgery: cholelithiasis, biliary colic Operative Findings: cholelithiasis Procedure/Operation Description: Procedure: laparoscopic cholecystectomy 53F who presents for Laparoscopic Cholecystectomy. Consent was obtained before the procedure. Risks/benefits were discussed at length with the patient. The patient verbalized understanding and agreement. Patient was taken to the operating room and placed in the supine position. SCDs Were applied to bilateral lower extremities. General endotracheal anesthesia was administered. The patients abdomen was prepped and draped in the usual sterile fashion. Timeout was performed. #11 blade was used to make supraumbilical incision. Verses needle puncture was performed at this incision. The abdomen was insufflated to the optimal 15 mmhg with CO2. 12 mm laparoscopic trocar was inserted through the supraumbilical incision. Under direct visualization, a second 12 mm was placed subxiphoid then two additional 5 mm port were beneath the right costal margin (one medial and one lateral). The gallbladder was visualized. It appeared with adhesions and mild distention. The gallbladder fundus was grasp in elevated towards the right shoulder. The infundibulum was cleared of overlying fatty tissue invitations then grasp and retracted laterally. The cystic duct was identified and dissected bluntly. The cystic duct was cleared towards the junction of the CBD as well as near its insertion to the gallbladder. The cystic artery was then identify and bluntly dissected. The critical view of safety was achieved. Three Clips were placed on the cystic duct and then it was divided with Endo Vik. The cystic artery was also clipped in the same fashion then was divided as well. A posterior branch of the cystic artery with bifurcation was identified. Three more clips were placed on the posterior branch before it was divided with Endo Vik. The gallbladder was dissected off the liver bed using electrocautery. The liver bed was inspected for hemostasis before the dissection was completed. The gallbladder was completely removed from the liver bed and placed in a specimen retrieval bag before being removed from the supraumbilical port site. The right upper quadrant was irrigated and section. There was no evidence of bile or bleeding. The pneumoperitoneum was released and all the trocars were removed. The umbilical port site was then closed at the fascial layer with a figure of eight using 0 Vicryl on UR6 needle. All incisions were closed with subcuticular 4-0 Monocryl sutures. Dermabond was applied as dressing. All nursing counts were correct and confirmed. Patient tolerated the procedure well with no pain complications. The patient was transferred to the PACU for recovery. Estimated blood loss was 10 mL. Patient stable for discharge when SDS crtieria is met. Estimated Blood Loss: 10 mL Complications: None Discharge & Condition: Good, d/c when SDS criteria is met
[2018-11-18 12:02] VITALS: O2SAT 100
[2018-11-18 12:51] VITALS: BP 137/73; PULSE 78; RESP 18; TEMP 98
== END 2018-11-18 14:50 | disposition home or self-care (01) ==
LOC: C.SDS 07:34
PROVIDERS: ATTEND Specialist
DX: K80.10 Calculus of gallbladder with chronic cholecystitis without obstruction (principal); E11.9 Type 2 diabetes mellitus without complications
CPT/HCPCS: 47562; 82948; 88304; J0690; J1100; J2250; J2405; J2704; J2710; J3010; J7040; J7120